=== PATIENT | male | born 1980 | race African-American/Black ===

== ENCOUNTER 2022-07-19 10:11 | Emergency (ER) | payer BC ==
[~2022-07-19] VITALS: Ht 177.8 cm; Wt 86.4 kg
[2022-07-19 10:33] VITALS: BP 137/87
[2022-07-19 10:57] LABS: COVID AG,FIA SOURCE NASAL SWAB
== END 2022-07-19 12:57 | disposition home or self-care (01) ==
LOC: EMS 10:11
DX: Z01.84 Encounter for antibody response examination (principal)
CPT/HCPCS: 99283